=== PATIENT | male | born 1985 | race Two or more races ===

== ENCOUNTER 2017-03-20 12:41 | Emergency (ER) | payer OTHER ==
[2017-03-20] MEDS ORDERED: DIPH/PERTUSS(ACELL)/TETANUS VAC/PF 0.5 ML SYR (>=10YO) IM ONE (12:45)
[2017-03-20] MEDS ORDERED: LIDOCAINE 1% INJ-PF (10 MG/ML) 30 ML SDV INJ ONE (12:45)
[2017-03-20] MEDS ORDERED: CEFTRIAXONE 1 GM/D5W RTU 50 ML IV ONE (12:45)
[2017-03-20] MEDS ORDERED: MORPHINE SULFATE 10 MG/ML INJ IV ONE (13:01)
--- NOTE | 2017-03-20 13:03 | ER Document Report ---
ED General - General Chief Complaint: Laceration Stated Complaint: LEG INJURY Time Seen by Provider: 03/20/17 12:44 Mode of Arrival: Medic Information source: Patient Notes: 31-year-old male fall off his truck striking a bolt with his right leg just prior to arrival. Patient noted to have 2 large lacerations. Patient's tetanus is not up-to-date. - HPI Onset: Just prior to arrival Onset/Duration: Sudden Quality of pain: Sharp Severity: Mild Pain Level: 1 Associated symptoms: Other Exacerbated by: Denies Relieved by: Denies Similar symptoms previously: No Recently seen / treated by doctor: No - Related Data Allergies/Adverse Reactions: banana Allergy (Mild, Verified 03/20/17 13:29) Past Medical History - Social History Smoking Status: Never Smoker Cigarette use (# per day): No Chew tobacco use (# tins/day): No Smoking Education Provided: No Family History: Reviewed & Not Pertinent Review of Systems - Review of Systems Notes: REVIEW OF SYSTEMS: CONSTITUTIONAL : Denies fever, chills, or sweats. Denies recent illness. EENT: Denies eye, ear, throat, or mouth pain or symptoms. Denies nasal or sinus congestion or discharge. Denies throat, tongue, or mouth swelling or difficulty swallowing. CARDIOVASCULAR: Denies chest pain. Denies palpitations or racing or irregular heart beat. Denies ankle edema. RESPIRATORY: Denies cough, cold, or chest congestion. Denies shortness of breath, difficulty breathing, or wheezing. GASTROINTESTINAL: Denies abdominal pain or distention. Denies nausea, vomiting , or diarrhea. Denies blood in vomitus, stools, or per rectum. Denies black, tarry stools. Denies constipation. GENITOURINARY: Denies difficulty urinating, painful urination, burning, frequency, blood in urine, or discharge. MUSCULOSKELETAL: Denies back or neck pain or stiffness. Denies joint pain or swelling. SKIN: Admits to right leg laceration HEMATOLOGIC : Denies easy bruising or bleeding. LYMPHATIC: Denies swollen, enlarged glands. NEUROLOGICAL: Denies confusion or altered mental status. Denies passing out or loss of consciousness. Denies dizziness or lightheadedness. Denies headache. Denies weakness or paralysis or loss of use of either side. Denies problems with gait or speech. Denies sensory loss, numbness, or tingling. Denies seizures. PSYCHIATRIC: Denies anxiety or stress. Denies depression, suicidal ideation, or homicidal ideation. ALL OTHER SYSTEMS REVIEWED AND NEGATIVE. Dictation was performed using [employer] voice recognition software PHYSICAL EXAMINATION: GENERAL: Well-appearing, well-nourished and in no acute distress. HEAD: Atraumatic, normocephalic. EYES: Pupils equal round and reactive to light, extraocular movements intact, sclera anicteric, conjunctiva are normal. ENT: Nares patent, oropharynx clear without exudates. Moist mucous membranes. NECK: Normal range of motion, supple without lymphadenopathy LUNGS: Breath sounds clear to auscultation bilaterally and equal. No wheezes rales or rhonchi. HEART: Regular rate and rhythm without murmurs ABDOMEN: Soft, nontender, nondistended abdomen. No guarding, no rebound. No masses appreciated. Musculoskeletal: Normal range of motion, no pitting or edema. No cyanosis. NEUROLOGICAL: Cranial nerves grossly intact. Normal speech, normal gait. Normal sensory, motor exams PSYCH: Normal mood, normal affect. SKIN: Large lacerations of the right calf and marcos, first is 12 cm in a jagged shape with adipose tissue lacerated as well more medial laceration is 8 cm in a V-shaped Physical Exam - Vital signs Vitals: Temp Pulse Resp BP Pulse Ox 98.3 F 98 18 134/73 H 98 03/20/17 12:57 03/20/17 12:57 03/20/17 12:57 03/20/17 12:57 03/20/17 12:57 Course - Re-evaluation Re-evalutation: 03/20/17 14:40 Laceration was extensively cleansed large amount of the anesthesia used, wound was repaired, there is 2 separate wounds one is 12 cm requiring 12 sutures the other was 8 cm requiring 8 sutures After performing a Medical Screening Examination, I estimate there is LOW risk for OPEN FRACTURE, COMPARTMENT SYNDROME, TENDON RUPTURE, ACUTE NEUROVASCULAR INJURY, or RETAINED FOREIGN BODY, thus I consider the discharge disposition reasonable. Also, there is no evidence or peritonitis, sepsis, or toxicity. I have reevaluated this patient multiple times and no significant life threatening changes are noted. The patient and I have discussed the diagnosis and risks, and we agree with discharging home with close follow-up with the understanding that symptoms and presentations can change. We also discussed returning to the Emergency Department immediately if new or worsening symptoms occur. We have discussed the symptoms which are most concerning (e.g., changing or worsening pain, fever, numbness, weakness, cool or painful digits) that necessitate immediate return. 03/20/17 16:21 - Vital Signs Vital signs: Temp Pulse Resp BP Pulse Ox 98.3 F 98 18 134/73 H 98 03/20/17 12:57 03/20/17 12:57 03/20/17 12:57 03/20/17 12:57 03/20/17 12:57 Procedures - Laceration/Wound Repair Right Anterior Leg Time completed: 14:30 Wound length (cm): 12 Wound's Depth, Shape: Into muscle, Irregular, Flap, Stellate, Contused tissue Laceration pre-procedure: Sterile PPE donned, Betadine prep applied, Shur-Clens applied Anesthetic type: 1% Lidocaine Volume Anesthetic (mLs): 25 Wound explored: Contaminated, Foreign body removed Irrigated w/ Saline (mLs): 6,000 Wound Debrided: Extensive Wound Repaired With: Sutures Suture Size/Type: 3:0, Ethilon Number of Sutures: 12 Layer Closure?: Yes Deep Layer Suture Size/Type: 4:0, Chromic Number Deep Layer Sutures: 2 Post-procedure wound care: Sterile dressing applied Post-procedure NV exam normal: Yes Complications: No Right Medial Leg Time completed: 14:35 Wound length (cm): 8 Wound's Depth, Shape: Superficial, Into muscle, Irregular, Stellate Laceration pre-procedure: Sterile PPE donned, Betadine prep applied, Sterile drapes applied Anesthetic type: 1% Lidocaine Volume Anesthetic (mLs): 20 Wound explored: Contaminated, Foreign body removed Irrigated w/ Saline (mLs): 5,000 Wound Debrided: Extensive Wound Repaired With: Sutures Suture Size/Type: 3:0, Ethilon Layer Closure?: No Post-procedure wound care: Sterile dressing applied Post-procedure NV exam normal: Yes Complications: No Discharge - Discharge Clinical Impression: Laceration of right lower leg Qualifiers: Encounter type: initial encounter Qualified Code(s): S81.811A - Laceration without foreign body, right lower leg, initial encounter Condition: Stable Disposition: HOME, SELF-CARE Instructions: Laceration Care ([facility]), Prophylactic Antibiotic ([facility]), Tetanus Immunization Given ([facility]) Additional Instructions: 10-14 days for removal of sutures or immediately if there is any redness pus drainage or any signs of infection physician tomorrow for further care or return to the ED IMMEDIATELY if symptoms worsen or new concerns occur. If you cannot afford to follow up with your primary care physician a list of low cost clinics have been provided at the end of your discharge papers as well.Follow up with your physician tomorrow for further care or return to the ED IMMEDIATELY if symptoms worsen or new concerns occur. If you cannot afford to follow up with your primary care physician a list of low cost clinics have been provided at the end of your discharge papers as well. Patient was given morphine in the ED. Please note this on drug screen Prescriptions: Clindamycin HCl 300 mg PO Q6 #40 capsule Oxycodone HCl/Acetaminophen [Percocet 5-325 mg Tablet] 1 tab PO ASDIR PRN #25 tab PRN Reason:
[2017-03-20] MEDS ORDERED: LIDOCAINE 1% INJ-PF (10 MG/ML) 30 ML SDV ONE (13:44)
[2017-03-20 18:09] VITALS: BP 130/88
== END 2017-03-20 18:09 | disposition home or self-care (01) ==
LOC: ER 12:41
PROC: 0HQKXZZ Repair Right Lower Leg Skin, External Approach (ICD-10-PCS; principal; 2017-03-20)
DX: S81.811A Laceration without foreign body, right lower leg, initial encounter (principal); W17.89XA Other fall from one level to another, initial encounter; Y99.0 Civilian activity done for income or pay
CPT/HCPCS: 99283; 90471; 96374; 96375; 90715; 12035; J3490; J2270; J0696